=== PATIENT | male | born 1950 | race Asian ===

== ENCOUNTER 2024-08-24 23:58 | Inpatient (IN) | payer BC, MEDICAID ==
[~2024-08-24] VITALS: Ht 165.1 cm; Wt 56.7 kg
[2024-08-25] VITALS (22 sets, daily range): BP systolic 88–122; BP diastolic 45–73; PULSE 85–98; RESP 17–29; TEMP 36.3–36.7; O2SAT 97–100
[2024-08-25 00:33] LABS: BASOPHILS % 0.5 % (0.0-2.0); EOSINOPHILS % 2.4 % (0.0-5.0); HEMATOCRIT. 30.0 % (42.0-52.0); HEMOGLOBIN. 9.8 g/dL (14.0-18.0); LYMPHOCYTES % 33.4 % (20.0-50.0); MEAN PLATELET VOLUME 8.6 fl (7.4-10.4); MONOCYTES % 6.3 % (2.0-8.0); NEUTROPHILS % 57.4 % (40.0-76.0); PLATELET 285 x1000/uL (130-400); RED BLOOD CELL COUNT 3.28 mill/uL (4.7-6.1); RED CELL DISTRIBUTION WIDTH 13.9 % (11.6-14.6)
[2024-08-25 00:39] LABS: INR 1.0
[2024-08-25 00:51] LABS: CREATININE 2.9 mg/dL (0.6-1.3); UREA NITROGEN BLOOD 58 mg/dL (9-23)
[2024-08-25 00:52] LABS: ETHANOL BLOOD < 10 mg/dL (<10)
[2024-08-25 00:53] LABS: TROPONIN I HIGH SENSITIVITY 101 ng/L (3.0-53)
[2024-08-25] MEDS: SODIUM CHLORIDE 0.9% 250 ML IV ONE ×2 (03:11→03:25)
[2024-08-25] MEDS: PIPERACILLIN/TAZO 3.375G/50ML 50 ML IV NR (03:18)
[2024-08-25 04:27] LABS: TROPONIN I HIGH SENSITIVITY 849.0 ng/L (3.0-53)
[2024-08-25] MEDS: VANCOMYCIN 1G PREMIX 200 ML IV NR (04:33)
[2024-08-25] MEDS ORDERED: HEPARIN 5000 UNITS/ML VIAL IV PRN ×4 (04:45→05:12)
[2024-08-25] MEDS ORDERED: NOREPINEPHRINE 8 MG in DEXT 5% WATER 242 ML IV PRN (04:45)
[2024-08-25] MEDS: HEPARIN 5000 UNITS/ML VIAL IV SCH (04:57)
[2024-08-25] MEDS: HEPARIN 25,000 UNITS PREMIX 250 ML IV PRN (05:22)
[2024-08-25] MEDS ORDERED: IPRATROPIUM/ALBUTEROL 0.5-3(2.5)MG/3ML NEB HHN PRN (10:00)
[2024-08-25] MEDS ORDERED: DEXTROSE 50% WATER 50ML SYRINGE IV PRN (10:00)
[2024-08-25] MEDS: BLOOD SUGAR DIAGNOSTIC STRIP TEST SCH (12:44)
[2024-08-25] MEDS: INSULIN LISPRO 100 UNITS/ML SUBCUT SCH (12:46)
[2024-08-25 12:53] LABS: CREATININE 2.6 mg/dL (0.6-1.3); UREA NITROGEN BLOOD 58.0 mg/dL (9-23)
[2024-08-25 16:38] LABS: TROPONIN I HIGH SENSITIVITY 105107 ng/L (3.0-53)
[2024-08-25] MEDS ORDERED: RIVAROXABAN 15 MG TABLET PO SCH (17:00)
[2024-08-25] MEDS ORDERED: RIVAROXABAN 10 MG TABLET PO SCH (18:20)
[2024-08-25] MEDS: ENOXAPARIN 60MG/0.6ML SYR SUBCUT SCH (18:33)
[2024-08-25] MEDS: ASPIRIN 81MG TABLET PO SCH (18:45)
[2024-08-25 19:49] LABS: TRIGLYCERIDE 122.0 mg/dL (0-150)
[2024-08-25 19:50] LABS: LDL CHOLESTEROL 59.0 mg/dL (5-100)
[2024-08-25] MEDS: ATORVASTATIN CALCIUM 40MG TABLET PO SCH (20:58)
[2024-08-25] MEDS ORDERED: IPRATROPIUM/ALBUTEROL 0.5-3(2.5)MG/3ML NEB NEB PRN (23:30)
[2024-08-25] MEDS ORDERED: ACETAMINOPHEN 325MG TABLET PO PRN (23:30)
[2024-08-25] MEDS ORDERED: ONDANSETRON HCL 4MG/2ML INJ IV PRN (23:30)
[2024-08-25] MEDS ORDERED: HYDRALAZINE 20MG/ML VIAL IV PRN (23:30)
[2024-08-25] MEDS ORDERED: MAGNESIUM/ALUMINUM HYDROXIDE/SIMETHICONE 30ML UDC PO PRN (23:30)
[2024-08-26] VITALS (10 sets, daily range): BP systolic 92–123; BP diastolic 43–63; PULSE 80–89; RESP 18–23; TEMP 36.6–37; O2SAT 96–100
[2024-08-26 08:40] LABS: BASOPHILS % 0.6 % (0.0-2.0); EOSINOPHILS % 1.9 % (0.0-5.0); HEMATOCRIT. 28.4 % (42.0-52.0); HEMOGLOBIN. 9.2 g/dL (14.0-18.0); LYMPHOCYTES % 17.4 % (20.0-50.0); MEAN PLATELET VOLUME 8.2 fl (7.4-10.4); MONOCYTES % 6.5 % (2.0-8.0); NEUTROPHILS % 73.6 % (40.0-76.0); PLATELET 216 x1000/uL (130-400); RED BLOOD CELL COUNT 3.12 mill/uL (4.7-6.1); RED CELL DISTRIBUTION WIDTH 14.1 % (11.6-14.6)
[2024-08-26 09:18] LABS: CREATININE 2.4 mg/dL (0.6-1.3)
[2024-08-26 09:19] LABS: UREA NITROGEN BLOOD 47 mg/dL (9-23)
[2024-08-26 09:42] LABS: TROPONIN I HIGH SENSITIVITY 76887 ng/L (3.0-53)
[2024-08-26] MEDS ORDERED: HEPARIN 1000 UNITS/ML 10ML ONE (12:58)
[2024-08-26] MEDS ORDERED: IODIXANOL 320MG/ML 100 ML BOTTLE IV ONE (12:58)
[2024-08-26] MEDS ORDERED: LIDOCAINE HCL 1% 20ML VIAL ONE (12:58)
[2024-08-26] MEDS ORDERED: MIDAZOLAM HCL 2 MG/2 ML VIAL ONE (13:01)
[2024-08-26] MEDS ORDERED: FENTANYL CITRATE/PF 50MCG/ML 2ML VIAL ONE (13:01)
[2024-08-26] MEDS ORDERED: ATROPINE SULFATE 1MG/10ML SYR IV PRN (13:45)
[2024-08-26] MEDS: ENOXAPARIN 60MG/0.6ML SYR SUBCUT SCH (22:08)
[2024-08-26] MEDS: EPOETIN ALFA-EPBX 10,000 UNIT/ML VIAL SUBCUT SCH (22:10)
[2024-08-27] VITALS (8 sets, daily range): BP systolic 107–140; BP diastolic 45–65; PULSE 85–97; RESP 15–30; TEMP 36.7–37.2; O2SAT 97–99
[2024-08-27 05:51] LABS: CLARITY URINE CLEAR (CLEAR); COLOR URINE YELLOW (YELLOW)
[2024-08-27 05:52] LABS: PH URINE 6.0 (4.5-8.0); PROTEIN URINE TRACE (NEGATIVE); SPECIFIC GRAVITY URINE 1.0236.0 (1.005-1.030)
[2024-08-27 05:53] LABS: GLUCOSE URINE 3+ (NEGATIVE)
[2024-08-27 05:54] LABS: KETONES URINE NEGATIVE (NEGATIVE); OCCULT BLOOD URINE TRACE (NEGATIVE)
[2024-08-27 05:55] LABS: LEUKOCYTE ESTERASE URINE NEGATIVE (NEGATIVE)
[2024-08-27 05:56] LABS: NITRITE URINE NEGATIVE (NEGATIVE); UROBILINOGEN URINE 0.2 E.U./dL (0.2-1.0)
[2024-08-27 06:46] LABS: WBC URINE 0-2 /hpf (0-2)
[2024-08-27 06:48] LABS: BACTERIA URINE NONE SEEN; RBC URINE NONE SEEN /hpf (0-2); SQUAMOUS EPITHELIAL CELL URINE NONE SEEN /lpf (RARE/1+)
[2024-08-27 07:17] LABS: BASOPHILS % 0.6 % (0.0-2.0); EOSINOPHILS % 2.5 % (0.0-5.0); HEMATOCRIT. 28.1 % (42.0-52.0); HEMOGLOBIN. 9.3 g/dL (14.0-18.0); LYMPHOCYTES % 17.7 % (20.0-50.0); MEAN PLATELET VOLUME 8.4 fl (7.4-10.4); MONOCYTES % 5.9 % (2.0-8.0); NEUTROPHILS % 73.3 % (40.0-76.0); PLATELET 197 x1000/uL (130-400); RED BLOOD CELL COUNT 3.13 mill/uL (4.7-6.1); RED CELL DISTRIBUTION WIDTH 13.7 % (11.6-14.6)
[2024-08-27 07:41] LABS: CREATININE 2.1 mg/dL (0.6-1.3); PROTEIN TOTAL 6.1 g/dL (6.0-8.3)
[2024-08-27 07:42] LABS: UREA NITROGEN BLOOD 36 mg/dL (9-23)
[2024-08-27 07:43] LABS: ASPARTATE AMINOTRANSFERASE 116 IU/L (<34)
[2024-08-27 07:44] LABS: BILIRUBIN DIRECT 0.2 mg/dL (<=3.0); BILIRUBIN TOTAL 0.7 mg/dL (0.1-1.0); PHOSPHORUS 2.9 mg/dL (2.5-4.9)
[2024-08-27 09:43] LABS: FOLIC ACID (FOLATE) SERUM 19.27 ng/mL (>5.38); VITAMIN B12 SERUM 506 pg/mL (211-911)
[2024-08-27] MEDS: FERROUS SULFATE 325MG TABLET PO SCH (13:11)
[2024-08-28] VITALS (9 sets, daily range): BP systolic 94–123; BP diastolic 53–70; PULSE 82–98; RESP 11–28; TEMP 36.6–37.2; O2SAT 96–99
[2024-08-28 08:26] LABS: BASOPHILS % 0.5 % (0.0-2.0); EOSINOPHILS % 3.4 % (0.0-5.0); HEMATOCRIT. 28.8 % (42.0-52.0); HEMOGLOBIN. 9.6 g/dL (14.0-18.0); LYMPHOCYTES % 17.9 % (20.0-50.0); MEAN PLATELET VOLUME 8.6 fl (7.4-10.4); MONOCYTES % 7.1 % (2.0-8.0); NEUTROPHILS % 71.1 % (40.0-76.0); PLATELET 204 x1000/uL (130-400); RED BLOOD CELL COUNT 3.21 mill/uL (4.7-6.1); RED CELL DISTRIBUTION WIDTH 13.8 % (11.6-14.6)
[2024-08-28 08:47] LABS: UREA NITROGEN BLOOD 34 mg/dL (9-23)
[2024-08-28 08:48] LABS: CREATININE 2.2 mg/dL (0.6-1.3)
[2024-08-28 08:49] LABS: ASPARTATE AMINOTRANSFERASE 66 IU/L (<34)
[2024-08-28 08:50] LABS: BILIRUBIN DIRECT 0.2 mg/dL (<=3.0); BILIRUBIN TOTAL 0.5 mg/dL (0.1-1.0); PHOSPHORUS 2.8 mg/dL (2.5-4.9); PROTEIN TOTAL 6.4 g/dL (6.0-8.3)
[2024-08-29] VITALS (11 sets, daily range): BP systolic 105–135; BP diastolic 54–71; PULSE 84–91; RESP 14–29; TEMP 36.4–37; O2SAT 97–100
[2024-08-29 06:36] LABS: BASOPHILS % 0.5 % (0.0-2.0); EOSINOPHILS % 3.9 % (0.0-5.0); HEMATOCRIT. 29.3 % (42.0-52.0); HEMOGLOBIN. 9.8 g/dL (14.0-18.0); LYMPHOCYTES % 17.2 % (20.0-50.0); MEAN PLATELET VOLUME 8.7 fl (7.4-10.4); MONOCYTES % 7.5 % (2.0-8.0); NEUTROPHILS % 70.9 % (40.0-76.0); PLATELET 209 x1000/uL (130-400); RED BLOOD CELL COUNT 3.26 mill/uL (4.7-6.1); RED CELL DISTRIBUTION WIDTH 13.9 % (11.6-14.6)
[2024-08-29 06:46] LABS: CREATININE 1.9 mg/dL (0.6-1.3); UREA NITROGEN BLOOD 33 mg/dL (9-23)
[2024-08-29 06:48] LABS: PHOSPHORUS 3.0 mg/dL (2.5-4.9)
[2024-08-29] MEDS ORDERED: DIPHENHYDRAMINE 25MG CAPSULE PO PRN (21:00)
[2024-08-29] MEDS: ALLOPURINOL 300 MG TABLET PO SCH (21:13)
[2024-08-29] MEDS: DOCUSATE SODIUM 100MG CAPSULE PO SCH (21:14)
[2024-08-29] MEDS: ASCORBIC ACID 500 MG TABLET PO SCH (21:14)
[2024-08-29] MEDS: CHLORHEXIDINE GLUCONATE 4% EXTERNAL USE TOP SCH (21:14)
[2024-08-29 22:29] LABS: INR 1.0
[2024-08-30] VITALS (54 sets, daily range): BP systolic 96–141; BP diastolic 25–93; PULSE 78–138; RESP 15–39; TEMP 26.1–37.2252; O2SAT 88–100
[2024-08-30] MEDS ORDERED: NICARDIPINE 40MG/200ML PREMIX 200 ML IV PRN (05:00)
[2024-08-30] MEDS ORDERED: NOREPINEPHRINE 8MG/250ML PMX 250 ML IV PRN ×2 (05:00→13:45)
[2024-08-30] MEDS ORDERED: LR with VERAPAMIL, NTG, HEPARIN, SODIUM BICARBONATE (Soln) IV PRN (05:00)
[2024-08-30] MEDS ORDERED: PAPAVERINE HCL 180MG in SODIUM CHLORIDE 0.9% 24ML IV PRN (05:00)
[2024-08-30] MEDS ORDERED: DOPAMINE 400MG/250ML PREMIX 250 ML IV PRN (05:00)
[2024-08-30] MEDS ORDERED: DOBUTAMINE 250 MG/250 ML PREMIX IV PRN (05:00)
[2024-08-30] MEDS ORDERED: AMINOCAPROIC ACID 5,000 MG in SODIUM CHLORIDE 0.9% 250 ML IV PRN (05:00)
[2024-08-30] MEDS ORDERED: EPINEPHRINE 5 MG in DEXT 5% WATER 250 ML IV PRN (05:00)
[2024-08-30] MEDS ORDERED: VANCOMYCIN 1G PREMIX 200 ML IV SCH (05:00)
[2024-08-30] MEDS ORDERED: CEFAZOLIN 2,000 MG in DEXT 5% WATER 100 ML IV SCH (05:00)
[2024-08-30] MEDS: BLOOD SUGAR DIAGNOSTIC STRIP TEST SCH ×2 (05:25→14:00)
[2024-08-30] MEDS ORDERED: POLYMYXIN B SULFATE 500000 UNITS/VIAL ONE (05:56)
[2024-08-30] MEDS ORDERED: THROMBIN (BOVINE) 5000 UNITS/VIAL TOP ONE ×3 (05:57→11:57)
[2024-08-30] MEDS ORDERED: ACETAMINOPHEN 1000MG/100ML 100 ML IV ONE (05:57)
[2024-08-30] MEDS ORDERED: DEXMEDETOMIDINE 400 MCG/100 ML 100 ML IV ONE (06:11)
[2024-08-30] MEDS ORDERED: HEPARIN 1000 UNITS/ML 10ML ONE ×2 (06:11→08:28)
[2024-08-30] MEDS ORDERED: SEVOFLURANE 250 ML LIQUID INH ONE (06:11)
[2024-08-30] MEDS ORDERED: NICARDIPINE 40MG/200ML PREMIX 200 ML IV ONE (06:11)
[2024-08-30] MEDS: CHLORHEXIDINE GLUCONATE 4% EXTERNAL USE TOP SCH (06:11)
[2024-08-30] MEDS ORDERED: DOPAMINE 400MG/250ML PREMIX 250 ML IV ONE (06:11)
[2024-08-30] MEDS ORDERED: PROPOFOL 10MG/ML 100ML 100 ML IV ONE (06:14)
[2024-08-30] MEDS ORDERED: NITROGLYCERIN 50MG PREMIX 250 ML IV ONE (06:19)
[2024-08-30 06:26] LABS: BASOPHILS % 0.7 % (0.0-2.0); EOSINOPHILS % 3.8 % (0.0-5.0); HEMATOCRIT. 39.7 % (42.0-52.0); HEMOGLOBIN. 12.9 g/dL (14.0-18.0); LYMPHOCYTES % 21.1 % (20.0-50.0); MEAN PLATELET VOLUME 8.9 fl (7.4-10.4); MONOCYTES % 6.1 % (2.0-8.0); NEUTROPHILS % 68.3 % (40.0-76.0); PLATELET 224 x1000/uL (130-400); RED BLOOD CELL COUNT 4.45 mill/uL (4.7-6.1); RED CELL DISTRIBUTION WIDTH 15.2 % (11.6-14.6)
[2024-08-30 06:33] LABS: CREATININE 1.8 mg/dL (0.6-1.3); UREA NITROGEN BLOOD 29 mg/dL (9-23)
[2024-08-30 06:35] LABS: PHOSPHORUS 2.7 mg/dL (2.5-4.9)
[2024-08-30] MEDS ORDERED: FENTANYL CITRATE/PF 50MCG/ML 2ML VIAL ONE ×2 (07:26)
[2024-08-30] MEDS ORDERED: ROCURONIUM BROMIDE 10MG/ML VIAL 5ML IV ONE ×2 (07:27→10:35)
[2024-08-30] MEDS ORDERED: ETOMIDATE 2MG/ML 10ML VIAL IV ONE (07:27)
[2024-08-30] MEDS ORDERED: FUROSEMIDE 100MG/10ML VIAL ONE (08:25)
[2024-08-30] MEDS ORDERED: HEPARIN 10,000 UNITS/ML VIAL ONE (09:00)
[2024-08-30] MEDS ORDERED: CEFAZOLIN SODIUM 1000MG/VIAL ONE (09:05)
[2024-08-30] MEDS ORDERED: ESMOLOL HCL 10MG/ML 10ML VIAL IV ONE (09:05)
[2024-08-30] MEDS ORDERED: ONDANSETRON HCL 4MG/2ML INJ ONE (09:06)
[2024-08-30] MEDS ORDERED: SODIUM BICARBONATE 8.4% 50MEQ/50ML SYR IV ONE ×3 (09:09→10:29)
[2024-08-30] MEDS ORDERED: CALCIUM CHLORIDE 1GM/10ML SYR IV ONE ×2 (09:41→10:26)
[2024-08-30] MEDS ORDERED: AMIODARONE 360MG/200ML D5W PREMIX IV SCH (10:00)
[2024-08-30] MEDS ORDERED: VASOPRESSIN 20 UNIT/ML 1ML ONE (10:27)
[2024-08-30] MEDS ORDERED: LIDOCAINE HCL 2% 5ML SYRINGE IV ONE (11:05)
[2024-08-30] MEDS ORDERED: PROTAMINE SULFATE 10MG/ML VIAL 25ML IV ONE (11:27)
[2024-08-30] MEDS ORDERED: CALCIUM CHLORIDE 3,000 MG in DEXT 5% WATER 250 ML IV PRN (12:30)
[2024-08-30] MEDS ORDERED: MAGNESIUM SULFATE 3 GM in DEXT 5% WATER 100 ML IV PRN (12:30)
[2024-08-30] MEDS ORDERED: SODIUM CHLORIDE 0.9% 500 ML IV PRN (12:30)
[2024-08-30] MEDS ORDERED: MAGNESIUM 2 G PREMIX 50 ML IV PRN (12:30)
[2024-08-30] MEDS ORDERED: CALCIUM CHLORIDE 5,000 MG in DEXT 5% WATER 500 ML IV PRN (12:30)
[2024-08-30] MEDS ORDERED: ALBUMIN HUMAN 25GM/100ML (25%) IV PRN (12:30)
[2024-08-30] MEDS ORDERED: MAGNESIUM 1 G PREMIX 100 ML IV PRN (12:30)
[2024-08-30] MEDS ORDERED: DEXTROSE 50% WATER 50ML SYRINGE IV PRN ×2 (12:45)
[2024-08-30] MEDS ORDERED: BLOOD SUGAR DIAGNOSTIC STRIP TEST SCH (12:45)
[2024-08-30 12:52] LABS: BASOPHILS % 0.1 % (0.0-2.0); EOSINOPHILS % 1.8 % (0.0-5.0); HEMATOCRIT. 27.8 % (42.0-52.0); HEMOGLOBIN. 9.1 g/dL (14.0-18.0); LYMPHOCYTES % 17.5 % (20.0-50.0); MEAN PLATELET VOLUME 8.8 fl (7.4-10.4); MONOCYTES % 0.8 % (2.0-8.0); NEUTROPHILS % 79.8 % (40.0-76.0); PLATELET 144 x1000/uL (130-400); RED BLOOD CELL COUNT 3.18 mill/uL (4.7-6.1); RED CELL DISTRIBUTION WIDTH 14.3 % (11.6-14.6)
[2024-08-30 13:00] LABS: INR 1.1
[2024-08-30 13:03] LABS: CREATININE 2.0 mg/dL (0.6-1.3); UREA NITROGEN BLOOD 31 mg/dL (9-23)
[2024-08-30 13:05] LABS: ASPARTATE AMINOTRANSFERASE 53 IU/L (<34); BILIRUBIN TOTAL 0.4 mg/dL (0.1-1.0); PHOSPHORUS 4.9 mg/dL (2.5-4.9)
[2024-08-30 13:11] LABS: PROTEIN TOTAL 4.2 g/dL (6.0-8.3)
[2024-08-30] MEDS: NOREPINEPHRINE 8MG/250ML PMX 250 ML IV PRN (13:45)
[2024-08-30] MEDS: INSULIN REGULAR 100U/100ML PMX 100 ML IV NR (13:45)
[2024-08-30] MEDS: EPINEPHRINE 5 MG in DEXT 5% WATER 245 ML IV PRN (13:47)
[2024-08-30] MEDS: DOPAMINE 400MG/250ML PREMIX 250 ML IV PRN (13:47)
[2024-08-30] MEDS: VASOPRESSIN 20 UNIT in SODIUM CHLORIDE 0.9% 99 ML IV PRN (13:48)
[2024-08-30] MEDS: ALBUMIN HUMAN 12.5G/250ML (5%) IV PRN (13:48)
[2024-08-30] MEDS: DEXT 5%/0.45% NACL 1000ML 1,000 ML IV SCH (13:49)
[2024-08-30 14:11] LABS: BG BASE EXCESS -5.5 mmol/L (-2.0-3.0); BG CARBOXYHEMOGLOBIN 1.0 % (0.5-1.5); BG DEOXYHEMOGLOBIN 11.7 % (0.0-5.0); BG FRACTION INSPIRED OXYGEN 70; BG HCO3 ACT 19.4 mmol/L (21.0-28.0); BG METHEMOGLOBIN 0.3 % (0.5-1.5); BG OXYGEN SATURATION 88.1 % (94.0-98.0); BG OXYHEMOGLOBIN 87.0 % (94.0-98.0); BG PCO2 36.0 mmHg (35.0-48.0); BG PEEP (cmH2O) 10.0 cmH2O; BG PH 7.350 (7.350-7.450); BG PO2 58.2 mmHg (83.0-108.0); BG SAMPLE SITE ALINE; BG TIDAL VOLUME(mL) 450.0 mL; BG TOTAL HEMOGLOBIN 10.7 g/dL (13.5-17.5); BG TOTAL RESPIRATORY RATE 27 b/min; BG VENT MODE VENT - SIMV; BG VENT RATE 14.0 set
[2024-08-30 14:35] LABS: CREATININE 2.1 mg/dL (0.6-1.3); UREA NITROGEN BLOOD 32.0 mg/dL (9-23)
[2024-08-30] MEDS: DEXMEDETOMIDINE 400 MCG/100 ML 100 ML IV PRN (14:43)
[2024-08-30] MEDS: SODIUM BICARBONATE 8.4% 50MEQ/50ML SYR IV SCH (14:47)
[2024-08-30] MEDS: ONDANSETRON HCL 4MG/2ML INJ IV PRN (14:57)
[2024-08-30] MEDS ORDERED: ALBUMIN HUMAN 25GM/500ML (5%) IV NR (15:00)
[2024-08-30] MEDS: INSULIN REGULAR 100U/100ML PMX 100 ML IV SCH (15:04)
[2024-08-30] MEDS: KCL 10MEQ/50ML PREMIX 150 ML IV PRN (15:06)
[2024-08-30] MEDS ORDERED: KCL 10MEQ/50ML PREMIX 200 ML IV PRN (15:15)
[2024-08-30 15:20] LABS: PHOSPHORUS 6.4 mg/dL (2.5-4.9)
[2024-08-30 15:35] LABS: BG BASE EXCESS 1.0 mmol/L (-2.0-3.0); BG CARBOXYHEMOGLOBIN 0.3 % (0.5-1.5); BG DEOXYHEMOGLOBIN 1.1 % (0.0-5.0); BG FRACTION INSPIRED OXYGEN 100; BG HCO3 ACT 24.9 mmol/L (21.0-28.0); BG METHEMOGLOBIN 0.3 % (0.5-1.5); BG OXYGEN SATURATION 98.9 % (94.0-98.0); BG OXYHEMOGLOBIN 98.3 % (94.0-98.0); BG PCO2 36.5 mmHg (35.0-48.0); BG PEEP (cmH2O) 10.0 cmH2O; BG PH 7.451 (7.350-7.450); BG PO2 216.4 mmHg (83.0-108.0); BG SAMPLE SITE ALINE; BG TIDAL VOLUME(mL) 450.0 mL; BG TOTAL HEMOGLOBIN 9.3 g/dL (13.5-17.5); BG VENT MODE VENT - SIMV; BG VENT RATE 14.0 set
[2024-08-30] MEDS: IPRATROPIUM/ALBUTEROL 0.5-3(2.5)MG/3ML NEB HHN SCH (15:57)
[2024-08-30 17:16] LABS: BG BASE EXCESS 4.3 mmol/L (-2.0-3.0); BG CARBOXYHEMOGLOBIN 0.3 % (0.5-1.5); BG DEOXYHEMOGLOBIN 7.8 % (0.0-5.0); BG FRACTION INSPIRED OXYGEN 50; BG HCO3 ACT 27.9 mmol/L (21.0-28.0); BG METHEMOGLOBIN 0.3 % (0.5-1.5); BG OXYGEN SATURATION 92.2 % (94.0-98.0); BG OXYHEMOGLOBIN 91.6 % (94.0-98.0); BG PCO2 37.5 mmHg (35.0-48.0); BG PH 7.489 (7.350-7.450); BG PO2 64.1 mmHg (83.0-108.0); BG SAMPLE SITE ALINE; BG TOTAL HEMOGLOBIN 10.1 g/dL (13.5-17.5); BG VENT MODE VENT - CPAP
[2024-08-30] MEDS: METOCLOPRAMIDE HCL 10MG/2ML VIAL IV SCH (18:05)
[2024-08-30] MEDS: BUMETANIDE 2.5MG/10ML VIAL IV SCH (18:05)
[2024-08-30 19:11] LABS: BG BASE EXCESS -0.1 mmol/L (-2.0-3.0); BG CARBOXYHEMOGLOBIN 0.3 % (0.5-1.5); BG DEOXYHEMOGLOBIN 5.7 % (0.0-5.0); BG FLOW(L/min) 10.00 L/min; BG FRACTION INSPIRED OXYGEN 60; BG HCO3 ACT 23.9 mmol/L (21.0-28.0); BG METHEMOGLOBIN 0.3 % (0.5-1.5); BG OXYGEN SATURATION 94.3 % (94.0-98.0); BG OXYHEMOGLOBIN 93.7 % (94.0-98.0); BG PCO2 36.5 mmHg (35.0-48.0); BG PH 7.434 (7.350-7.450); BG PO2 75.2 mmHg (83.0-108.0); BG SAMPLE SITE ALINE; BG TOTAL HEMOGLOBIN 10.3 g/dL (13.5-17.5); BG VENT MODE COOL AEROSOL
[2024-08-30 20:31] LABS: HEMATOCRIT. 26.6 % (42.0-52.0); HEMOGLOBIN. 8.8 g/dL (14.0-18.0); MEAN PLATELET VOLUME 8.9 fl (7.4-10.4); PLATELET 171 x1000/uL (130-400); RED BLOOD CELL COUNT 3.05 mill/uL (4.7-6.1); RED CELL DISTRIBUTION WIDTH 14.4 % (11.6-14.6)
[2024-08-30 20:44] LABS: CREATININE 2.5 mg/dL (0.6-1.3)
[2024-08-30 20:58] LABS: BAND% 9.0 % (1.0-6.0); LYMPHOCYTES % MANUAL 15.0 % (20.0-50.0); MONOCYTES % MANUAL 11.0 % (2.0-8.0); NEUTROPHILS % MANUAL 65.0 % (45.0-75.0); NUCLEATED RED BLOOD CELLS 4 /100 WBC; PLATELET ESTIMATE NORMAL
[2024-08-30] MEDS: BACITRACIN 14GM TUBE TOP SCH (21:00)
[2024-08-30] MEDS ORDERED: CEFAZOLIN 1000MG PREMIX 50 ML IV SCH (21:00)
[2024-08-30 21:08] LABS: UREA NITROGEN BLOOD 34 mg/dL (9-23)
[2024-08-30] MEDS: KCL 10MEQ/50ML PREMIX 100 ML IV PRN (21:08)
[2024-08-30 21:09] LABS: PHOSPHORUS 1.9 mg/dL (2.5-4.9)
[2024-08-30] MEDS: ALBUMIN HUMAN 12.5G/250ML (5%) IV SCH (21:32)
[2024-08-30] MEDS: DEXT 5%/0.45% NACL KCL 20MEQ/L 1,000 ML IV ONE (21:41)
[2024-08-30] MEDS: HEPARIN 5000 UNITS/ML VIAL SUBCUT SCH (21:41)
[2024-08-30] MEDS: OXYCODONE HCL/ACETAMINOPHEN 5/325MG TABLET PO PRN (22:15)
[2024-08-31] VITALS (106 sets, daily range): BP systolic 101–175; BP diastolic 24–79; PULSE 12–130; RESP 12–32; TEMP 36.44736–37.55856; O2SAT 94–100
[2024-08-31] MEDS: FUROSEMIDE 40MG/4ML VIAL IVP SCH (01:21)
[2024-08-31 01:46] LABS: CREATININE 2.8 mg/dL (0.6-1.3); UREA NITROGEN BLOOD 34 mg/dL (9-23)
[2024-08-31 01:48] LABS: PHOSPHORUS 3.6 mg/dL (2.5-4.9)
[2024-08-31] MEDS: EPINEPHRINE 5 MG in SODIUM CHLORIDE 0.9% 245 ML IV PRN (04:57)
[2024-08-31] MEDS: DOPAMINE 400MG/250ML PREMIX 250 ML IV PRN (04:58)
[2024-08-31 06:00] LABS: BASOPHILS % 0.2 % (0.0-2.0); EOSINOPHILS % 0.2 % (0.0-5.0); HEMATOCRIT. 34.9 % (42.0-52.0); HEMOGLOBIN. 11.8 g/dL (14.0-18.0); LYMPHOCYTES % 11.8 % (20.0-50.0); MEAN PLATELET VOLUME 9.0 fl (7.4-10.4); MONOCYTES % 8.6 % (2.0-8.0); NEUTROPHILS % 79.2 % (40.0-76.0); PLATELET 117 x1000/uL (130-400); RED BLOOD CELL COUNT 4.05 mill/uL (4.7-6.1); RED CELL DISTRIBUTION WIDTH 14.4 % (11.6-14.6)
[2024-08-31] MEDS: FUROSEMIDE 40MG/4ML VIAL IVP NR (06:28)
[2024-08-31] MEDS ORDERED: NALOXONE HCL 0.4MG/ML VIAL IV PRN (06:30)
[2024-08-31 06:45] LABS: CREATININE 3.2 mg/dL (0.6-1.3); UREA NITROGEN BLOOD 37 mg/dL (9-23)
[2024-08-31 06:48] LABS: PHOSPHORUS 4.5 mg/dL (2.5-4.9)
[2024-08-31] MEDS: NITROGLYCERIN 50MG PREMIX 250 ML IV PRN (07:13)
[2024-08-31] MEDS: FAMOTIDINE 20MG/2ML VIAL IV SCH (09:11)
[2024-08-31] MEDS: MAGNESIUM HYDROXIDE 400MG/5ML 30ML UDC PO SCH (09:11)
[2024-08-31] MEDS: DEXT 5%/0.45% NACL 1000ML 1,000 ML IV SCH (09:12)
[2024-08-31] MEDS: ASPIRIN 81MG TABLET PO SCH (10:30)
[2024-08-31 10:37] LABS: BG BASE EXCESS 0.5 mmol/L (-2.0-3.0); BG CARBOXYHEMOGLOBIN 0.5 % (0.5-1.5); BG DEOXYHEMOGLOBIN 2.6 % (0.0-5.0); BG FLOW(L/min) 5.00 L/min; BG FRACTION INSPIRED OXYGEN 40; BG HCO3 ACT 24.8 mmol/L (21.0-28.0); BG METHEMOGLOBIN 0.1 % (0.5-1.5); BG OXYGEN SATURATION 97.4 % (94.0-98.0); BG OXYHEMOGLOBIN 96.8 % (94.0-98.0); BG PCO2 39.0 mmHg (35.0-48.0); BG PH 7.422 (7.350-7.450); BG PO2 103.1 mmHg (83.0-108.0); BG SAMPLE SITE LEFT RADIAL; BG TOTAL HEMOGLOBIN 12.2 g/dL (13.5-17.5); BG VENT MODE NASAL CANNULA
[2024-08-31] MEDS: TAMSULOSIN HCL 0.4MG SR CAPSULE PO NR (11:01)
[2024-08-31] MEDS: CLOPIDOGREL 75MG TABLET PO SCH (11:01)
[2024-08-31] MEDS: ALBUMIN HUMAN 12.5G/250ML (5%) IV NR (11:02)
[2024-08-31 13:58] LABS: PLATELET 96 x1000/uL (130-400); RED BLOOD CELL COUNT 3.98 mill/uL (4.7-6.1); RED CELL DISTRIBUTION WIDTH 14.6 % (11.6-14.6)
[2024-08-31 14:17] LABS: CREATININE 3.4 mg/dL (0.6-1.3); UREA NITROGEN BLOOD 37 mg/dL (9-23)
[2024-08-31 14:19] LABS: PHOSPHORUS 6.4 mg/dL (2.5-4.9)
[2024-08-31] MEDS: TAMSULOSIN HCL 0.4MG SR CAPSULE PO SCH (16:09)
[2024-08-31] MEDS: ALBUMIN HUMAN 12.5G/250ML (5%) IV SCH (17:19)
[2024-08-31] MEDS ORDERED: DEXTROSE 50% WATER 50ML SYRINGE IV PRN (20:45)
[2024-08-31] MEDS: BLOOD SUGAR DIAGNOSTIC STRIP TEST SCH (21:00)
[2024-08-31] MEDS: BUMETANIDE 2.5MG/10ML VIAL IV SCH (22:06)
[2024-08-31] MEDS: ALBUMIN HUMAN 25GM/100ML (25%) IV SCH (22:06)
[2024-08-31] MEDS: DEXT 5%/0.45% NACL 1000ML 1,000 ML IV ONE (22:08)
[2024-08-31] MEDS: FUROSEMIDE 100 MG in SODIUM CHLORIDE 0.9% 90 ML IV SCH (22:51)
[2024-08-31] MEDS: INSULIN LISPRO 100 UNITS/ML SUBCUT SCH (23:05)
[2024-09-01] VITALS (102 sets, daily range): BP systolic 53–140; BP diastolic 29–90; PULSE 80–118; RESP 7–38; TEMP 36.8–37.3; O2SAT 86–100
[2024-09-01 05:37] LABS: BASOPHILS % 0.2 % (0.0-2.0); EOSINOPHILS % 0.3 % (0.0-5.0); HEMATOCRIT. 27.8 % (42.0-52.0); HEMOGLOBIN. 9.4 g/dL (14.0-18.0); LYMPHOCYTES % 7.9 % (20.0-50.0); MEAN PLATELET VOLUME 9.4 fl (7.4-10.4); MONOCYTES % 4.8 % (2.0-8.0); NEUTROPHILS % 86.8 % (40.0-76.0); PLATELET 69 x1000/uL (130-400); RED BLOOD CELL COUNT 3.17 mill/uL (4.7-6.1); RED CELL DISTRIBUTION WIDTH 14.5 % (11.6-14.6)
[2024-09-01 06:13] LABS: CREATININE 4.3 mg/dL (0.6-1.3)
[2024-09-01 06:16] LABS: PHOSPHORUS 5.5 mg/dL (2.5-4.9); UREA NITROGEN BLOOD 47 mg/dL (9-23)
[2024-09-01] MEDS: TAMSULOSIN HCL 0.4MG SR CAPSULE PO SCH (08:27)
[2024-09-01 09:17] LABS: HEMATOCRIT. 28.9 % (42.0-52.0); HEMOGLOBIN. 9.5 g/dL (14.0-18.0); MEAN PLATELET VOLUME 9.2 fl (7.4-10.4); PLATELET 71 x1000/uL (130-400); RED BLOOD CELL COUNT 3.30 mill/uL (4.7-6.1); RED CELL DISTRIBUTION WIDTH 14.7 % (11.6-14.6)
[2024-09-01 09:33] LABS: CREATININE 4.4 mg/dL (0.6-1.3); UREA NITROGEN BLOOD 51 mg/dL (9-23)
[2024-09-01 09:35] LABS: PHOSPHORUS 5.7 mg/dL (2.5-4.9)
[2024-09-01 10:17] LABS: BAND% 23.0 % (1.0-6.0); LYMPHOCYTES % MANUAL 11.0 % (20.0-50.0); MONOCYTES % MANUAL 3.0 % (2.0-8.0); NEUTROPHILS % MANUAL 63.0 % (45.0-75.0); NUCLEATED RED BLOOD CELLS 2 /100 WBC
[2024-09-01 10:19] LABS: PLATELET ESTIMATE DECREASED
[2024-09-01] MEDS ORDERED: CALCIUM GLUCONATE 100MG/ML 10ML VIAL IV ONE (13:45)
[2024-09-01] MEDS ORDERED: TAMSULOSIN HCL 0.4MG SR CAPSULE PO SCH (15:00)
[2024-09-01] MEDS: CALCIUM GLUCONATE IV NR (15:34)
[2024-09-01] MEDS: SODIUM CHLORIDE 0.9% IV NR (15:34)
[2024-09-01] MEDS: SODIUM ZIRCONIUM CYCLOSILICATE 10GM/PACKET PO SCH (15:43)
[2024-09-01] MEDS: MINOXIDIL 10MG TABLET PO SCH (18:28)
[2024-09-01] MEDS: FUROSEMIDE 100MG/10ML VIAL IVP SCH (20:30)
[2024-09-01] MEDS: MIDODRINE HCL 5MG TABLET PO SCH (20:35)
[2024-09-02] VITALS (99 sets, daily range): BP systolic 86–137; BP diastolic 50–104; PULSE 106–123; RESP 13–36; TEMP 36.50292–37.2; O2SAT 85–100
[2024-09-02] MEDS: MIDODRINE HCL 5MG TABLET PO SCH (00:04)
[2024-09-02 05:11] LABS: BASOPHILS % 0.2 % (0.0-2.0); EOSINOPHILS % 1.1 % (0.0-5.0); HEMATOCRIT. 28.5 % (42.0-52.0); HEMOGLOBIN. 9.6 g/dL (14.0-18.0); LYMPHOCYTES % 7.3 % (20.0-50.0); MEAN PLATELET VOLUME 9.8 fl (7.4-10.4); MONOCYTES % 4.9 % (2.0-8.0); NEUTROPHILS % 86.5 % (40.0-76.0); PLATELET 76 x1000/uL (130-400); RED BLOOD CELL COUNT 3.22 mill/uL (4.7-6.1); RED CELL DISTRIBUTION WIDTH 14.5 % (11.6-14.6)
[2024-09-02 05:28] LABS: UREA NITROGEN BLOOD 61 mg/dL (9-23)
[2024-09-02 05:29] LABS: ASPARTATE AMINOTRANSFERASE 503 IU/L (<34)
[2024-09-02 05:30] LABS: BILIRUBIN DIRECT 0.6 mg/dL (<=3.0); BILIRUBIN TOTAL 1.2 mg/dL (0.1-1.0); PHOSPHORUS 6.2 mg/dL (2.5-4.9); PROTEIN TOTAL 5.7 g/dL (6.0-8.3)
[2024-09-02 05:35] LABS: CREATININE 5.1 mg/dL (0.6-1.3)
[2024-09-02 09:24] LABS: HEMATOCRIT. 30.1 % (42.0-52.0); HEMOGLOBIN. 10.2 g/dL (14.0-18.0); MEAN PLATELET VOLUME 9.6 fl (7.4-10.4); PLATELET 72 x1000/uL (130-400); RED BLOOD CELL COUNT 3.42 mill/uL (4.7-6.1); RED CELL DISTRIBUTION WIDTH 14.4 % (11.6-14.6)
[2024-09-02] MEDS ORDERED: POTASSIUM CHLORIDE 10MEQ IN WATER 50ML PREMIX IV ONE (09:39)
[2024-09-02 09:44] LABS: UREA NITROGEN BLOOD 65 mg/dL (9-23)
[2024-09-02 09:46] LABS: PHOSPHORUS 6.3 mg/dL (2.5-4.9)
[2024-09-02 09:56] LABS: BAND% 20.0 % (1.0-6.0); EOSINOPHILS % MANUAL 1.0 % (0.0-5.0); LYMPHOCYTES % MANUAL 5.0 % (20.0-50.0); MONOCYTES % MANUAL 1.0 % (2.0-8.0); NEUTROPHILS % MANUAL 73.0 % (45.0-75.0); NUCLEATED RED BLOOD CELLS 3 /100 WBC
[2024-09-02 09:57] LABS: PLATELET ESTIMATE DECREASED
[2024-09-02 10:05] LABS: CREATININE 5.6 mg/dL (0.6-1.3)
[2024-09-02] MEDS: LIDOCAINE HCL 1% 10 MG/ML 10ML VIAL ONE (10:17)
[2024-09-02 11:53] LABS: HEPATITIS A AB IGM NEGATIVE (Negative); HEPATITIS B CORE AB IGM NEGATIVE (Negative)
[2024-09-02 11:54] LABS: HEPATITIS C AB NON REACTIVE (Neg) (Negative)
[2024-09-03] VITALS (115 sets, daily range): BP systolic 68–158; BP diastolic 26–111; PULSE 104–124; RESP 14–36; TEMP 36.44736–37; O2SAT 81–100
[2024-09-03 06:32] LABS: BASOPHILS % 0.3 % (0.0-2.0); EOSINOPHILS % 2.3 % (0.0-5.0); HEMATOCRIT. 29.3 % (42.0-52.0); HEMOGLOBIN. 9.6 g/dL (14.0-18.0); LYMPHOCYTES % 8.8 % (20.0-50.0); MEAN PLATELET VOLUME 9.8 fl (7.4-10.4); MONOCYTES % 8.2 % (2.0-8.0); NEUTROPHILS % 80.4 % (40.0-76.0); PLATELET 72 x1000/uL (130-400); RED BLOOD CELL COUNT 3.30 mill/uL (4.7-6.1); RED CELL DISTRIBUTION WIDTH 14.6 % (11.6-14.6)
[2024-09-03 06:55] LABS: UREA NITROGEN BLOOD 55 mg/dL (9-23)
[2024-09-03 06:56] LABS: CREATININE 4.8 mg/dL (0.6-1.3)
[2024-09-03 06:58] LABS: ASPARTATE AMINOTRANSFERASE 465 IU/L (<34); BILIRUBIN DIRECT 0.6 mg/dL (<=3.0); PHOSPHORUS 5.1 mg/dL (2.5-4.9)
[2024-09-03 06:59] LABS: BILIRUBIN TOTAL 1.3 mg/dL (0.1-1.0); PROTEIN TOTAL 5.5 g/dL (6.0-8.3)
[2024-09-03] MEDS: LIDOCAINE HCL 1% 10 MG/ML 10ML VIAL ONE (15:34)
[2024-09-03] MEDS: MIDODRINE HCL 5MG TABLET PO SCH (16:48)
[2024-09-04] VITALS (92 sets, daily range): BP systolic 61–144; BP diastolic 35–112; PULSE 102–121; RESP 17–36; TEMP 36.6–36.8; O2SAT 64–98
[2024-09-04 04:53] LABS: BASOPHILS % 0.2 % (0.0-2.0); EOSINOPHILS % 2.7 % (0.0-5.0); HEMATOCRIT. 30.0 % (42.0-52.0); HEMOGLOBIN. 9.9 g/dL (14.0-18.0); LYMPHOCYTES % 7.6 % (20.0-50.0); MEAN PLATELET VOLUME 9.7 fl (7.4-10.4); MONOCYTES % 9.0 % (2.0-8.0); NEUTROPHILS % 80.5 % (40.0-76.0); PLATELET 89 x1000/uL (130-400); RED BLOOD CELL COUNT 3.38 mill/uL (4.7-6.1); RED CELL DISTRIBUTION WIDTH 14.7 % (11.6-14.6)
[2024-09-04 05:10] LABS: CREATININE 3.9 mg/dL (0.6-1.3); UREA NITROGEN BLOOD 43 mg/dL (9-23)
[2024-09-04 05:12] LABS: ASPARTATE AMINOTRANSFERASE 558 IU/L (<34)
[2024-09-04 05:13] LABS: BILIRUBIN DIRECT 0.7 mg/dL (<=3.0); BILIRUBIN TOTAL 1.6 mg/dL (0.1-1.0); PHOSPHORUS 3.8 mg/dL (2.5-4.9); PROTEIN TOTAL 5.7 g/dL (6.0-8.3)
[2024-09-04] MEDS: FERROUS SULFATE 325MG TABLET PO SCH (18:17)
[2024-09-05] VITALS (15 sets, daily range): BP systolic 110–150; BP diastolic 56–87; PULSE 104–120; RESP 19–65; TEMP 36.3–36.8; O2SAT 96–100
[2024-09-05 07:28] LABS: BASOPHILS % 0.3 % (0.0-2.0); EOSINOPHILS % 4.4 % (0.0-5.0); HEMATOCRIT. 29.0 % (42.0-52.0); HEMOGLOBIN. 9.5 g/dL (14.0-18.0); LYMPHOCYTES % 8.4 % (20.0-50.0); MEAN PLATELET VOLUME 9.8 fl (7.4-10.4); MONOCYTES % 8.0 % (2.0-8.0); NEUTROPHILS % 78.9 % (40.0-76.0); PLATELET 122 x1000/uL (130-400); RED BLOOD CELL COUNT 3.24 mill/uL (4.7-6.1); RED CELL DISTRIBUTION WIDTH 14.4 % (11.6-14.6)
[2024-09-05 07:43] LABS: CREATININE 4.6 mg/dL (0.6-1.3)
[2024-09-05 07:44] LABS: UREA NITROGEN BLOOD 65 mg/dL (9-23)
[2024-09-05 07:46] LABS: PHOSPHORUS 4.9 mg/dL (2.5-4.9)
[2024-09-05] MEDS: GUAIFENESIN 200MG/10ML SUGAR FREE UDC PO PRN (13:20)
[2024-09-05] MEDS: MORPHINE SULFATE 2 MG/ML INJ (NOT FOR IM USE) IV SCH (14:30)
[2024-09-05] MEDS ORDERED: NALOXONE HCL 0.4MG/ML VIAL IV PRN (14:45)
[2024-09-05] MEDS ORDERED: DULA1.5P SUBCUT (15:28)
[2024-09-05] MEDS ORDERED: METO-396 PO (15:28)
[2024-09-05] MEDS ORDERED: PANT40TA51 PO (15:28)
[2024-09-05] MEDS ORDERED: INSU100I28 SUBCUT (15:28)
[2024-09-05] MEDS ORDERED: ROSU40TA PO (15:28)
[2024-09-05] MEDS ORDERED: INSU100I13 SUBCUT (15:28)
[2024-09-05] MEDS ORDERED: FURO40TA5 PO (15:28)
[2024-09-05] MEDS ORDERED: EMPA10TA PO (15:28)
[2024-09-05] MEDS ORDERED: SPIR25TA6 PO (15:28)
[2024-09-05] MEDS: NITROGLYCERIN OINT 1GM/INCH UDPKT TD SCH (18:13)
[2024-09-05] MEDS: MIDODRINE HCL 5MG TABLET PO SCH (18:17)
[2024-09-05] MEDS: ACETAMINOPHEN 325MG TABLET PO PRN (18:17)
[2024-09-06] VITALS (7 sets, daily range): BP systolic 98–135; BP diastolic 56–67; PULSE 103–113; RESP 18–29; TEMP 36.5–36.8; O2SAT 96–100
[2024-09-06] MEDS: ACETAMINOPHEN 325MG TABLET PO PRN (04:42)
[2024-09-06 08:58] LABS: BASOPHILS % 0.3 % (0.0-2.0); EOSINOPHILS % 3.1 % (0.0-5.0); HEMATOCRIT. 29.9 % (42.0-52.0); HEMOGLOBIN. 9.6 g/dL (14.0-18.0); LYMPHOCYTES % 8.3 % (20.0-50.0); MEAN PLATELET VOLUME 9.6 fl (7.4-10.4); MONOCYTES % 8.1 % (2.0-8.0); NEUTROPHILS % 80.2 % (40.0-76.0); PLATELET 184 x1000/uL (130-400); RED BLOOD CELL COUNT 3.31 mill/uL (4.7-6.1); RED CELL DISTRIBUTION WIDTH 14.8 % (11.6-14.6)
[2024-09-06 09:43] LABS: CREATININE 4.0 mg/dL (0.6-1.3); UREA NITROGEN BLOOD 60 mg/dL (9-23)
[2024-09-06 09:45] LABS: PHOSPHORUS 4.0 mg/dL (2.5-4.9)
[2024-09-06 09:48] LABS: TROPONIN I HIGH SENSITIVITY 2175 ng/L (3.0-53)
[2024-09-06] MEDS: METOPROLOL SUCCINATE 50MG ER TABLET PO SCH (13:04)
[2024-09-06] MEDS: NITROGLYCERIN 0.4MG TABLET SL SL PRN (14:09)
[2024-09-06] MEDS: MORPHINE SULFATE 2 MG/ML INJ (NOT FOR IM USE) IV PRN (14:24)
[2024-09-06] MEDS: HYDROCODONE/ACETAMINOPHEN 5/325MG TABLET PO PRN (17:10)
[2024-09-06] MEDS: EPOETIN ALFA-EPBX 4,000 UNIT/ML VIAL SUBCUT SCH (21:56)
[2024-09-07] VITALS: BP 110/62; PULSE 103; RESP 23; TEMP 36.7; O2SAT 96
[2024-09-07] MEDS ORDERED: MAGNESIUM HYDROXIDE 400MG/5ML 30ML UDC PO SCH
[2024-09-07 04:08] VITALS: BP 93/72; PULSE 106; RESP 24; TEMP 36.4; O2SAT 94
[2024-09-07 08:00] VITALS: BP 112/65; PULSE 102; RESP 22; TEMP 37; O2SAT 97
[2024-09-07 09:01] LABS: UREA NITROGEN BLOOD 69 mg/dL (9-23)
[2024-09-07 09:03] LABS: CREATININE 3.9 mg/dL (0.6-1.3)
[2024-09-07 09:04] LABS: ASPARTATE AMINOTRANSFERASE 197 IU/L (<34)
[2024-09-07 09:05] LABS: BILIRUBIN DIRECT 0.5 mg/dL (<=3.0); BILIRUBIN TOTAL 1.1 mg/dL (0.1-1.0); PHOSPHORUS 4.0 mg/dL (2.5-4.9); PROTEIN TOTAL 5.5 g/dL (6.0-8.3)
[2024-09-07 09:07] LABS: BASOPHILS % 0.4 % (0.0-2.0); EOSINOPHILS % 3.8 % (0.0-5.0); HEMATOCRIT. 28.1 % (42.0-52.0); HEMOGLOBIN. 9.1 g/dL (14.0-18.0); LYMPHOCYTES % 10.0 % (20.0-50.0); MEAN PLATELET VOLUME 9.3 fl (7.4-10.4); MONOCYTES % 9.4 % (2.0-8.0); NEUTROPHILS % 76.4 % (40.0-76.0); PLATELET 237 x1000/uL (130-400); RED BLOOD CELL COUNT 3.14 mill/uL (4.7-6.1); RED CELL DISTRIBUTION WIDTH 14.8 % (11.6-14.6)
[2024-09-07] MEDS: METOPROLOL SUCCINATE 25MG ER TABLET PO SCH (09:24)
[2024-09-07 12:00] VITALS: BP 110/52; PULSE 102; RESP 20; TEMP 36.9; O2SAT 96
[2024-09-07 16:00] VITALS: BP 112/60; PULSE 98; RESP 28; TEMP 36.9; O2SAT 98
[2024-09-08] VITALS (7 sets, daily range): BP systolic 115–131; BP diastolic 54–64; PULSE 95–109; RESP 20–25; TEMP 36.6–37.1; O2SAT 95–99
[2024-09-08 10:04] LABS: BASOPHILS % 0.5 % (0.0-2.0); EOSINOPHILS % 3.6 % (0.0-5.0); HEMATOCRIT. 27.4 % (42.0-52.0); HEMOGLOBIN. 8.9 g/dL (14.0-18.0); LYMPHOCYTES % 8.8 % (20.0-50.0); MEAN PLATELET VOLUME 9.3 fl (7.4-10.4); MONOCYTES % 7.5 % (2.0-8.0); NEUTROPHILS % 79.6 % (40.0-76.0); PLATELET 306 x1000/uL (130-400); RED BLOOD CELL COUNT 3.06 mill/uL (4.7-6.1); RED CELL DISTRIBUTION WIDTH 14.4 % (11.6-14.6)
[2024-09-08 10:35] LABS: CREATININE 3.4 mg/dL (0.6-1.3)
[2024-09-08 10:36] LABS: UREA NITROGEN BLOOD 68 mg/dL (9-23)
[2024-09-08 10:37] LABS: ASPARTATE AMINOTRANSFERASE 129 IU/L (<34)
[2024-09-08 10:38] LABS: BILIRUBIN DIRECT 0.4 mg/dL (<=3.0); BILIRUBIN TOTAL 1.1 mg/dL (0.1-1.0); PHOSPHORUS 4.0 mg/dL (2.5-4.9); PROTEIN TOTAL 5.4 g/dL (6.0-8.3)
[2024-09-08] MEDS: CARVEDILOL 12.5MG TABLET PO SCH (18:05)
[2024-09-08] MEDS: SENNOSIDES 8.6MG TABLET PO SCH (20:28)
[2024-09-08] MEDS: LACTULOSE 20G/30ML UDC PO SCH (20:28)
[2024-09-08] MEDS ORDERED: METOPROLOL SUCCINATE 25MG ER TABLET PO SCH (21:00)
[2024-09-09] VITALS (7 sets, daily range): BP systolic 100–142; BP diastolic 52–67; PULSE 95–103; RESP 20–26; TEMP 36.6–36.7; O2SAT 95–98
[2024-09-09] MEDS: IPRATROPIUM/ALBUTEROL 0.5-3(2.5)MG/3ML NEB HHN PRN (00:38)
[2024-09-09] MEDS: HEPARIN 1000 UNITS/ML 10ML ONE (08:52)
[2024-09-09 11:14] LABS: CREATININE 3.3 mg/dL (0.6-1.3); UREA NITROGEN BLOOD 67 mg/dL (9-23)
[2024-09-09 11:16] LABS: PHOSPHORUS 4.2 mg/dL (2.5-4.9)
[2024-09-09 11:36] LABS: BASOPHILS % 0.5 % (0.0-2.0); EOSINOPHILS % 3.2 % (0.0-5.0); HEMATOCRIT. 28.2 % (42.0-52.0); HEMOGLOBIN. 9.0 g/dL (14.0-18.0); LYMPHOCYTES % 9.6 % (20.0-50.0); MEAN PLATELET VOLUME 8.8 fl (7.4-10.4); MONOCYTES % 6.9 % (2.0-8.0); NEUTROPHILS % 79.8 % (40.0-76.0); PLATELET 357 x1000/uL (130-400); RED BLOOD CELL COUNT 3.16 mill/uL (4.7-6.1); RED CELL DISTRIBUTION WIDTH 14.9 % (11.6-14.6)
[2024-09-09] MEDS: FUROSEMIDE 40MG/4ML VIAL IVP SCH (16:40)
[2024-09-09] MEDS: CARVEDILOL 3.125 MG TABLET PO SCH (17:34)
[2024-09-10] VITALS: BP 110/62; PULSE 99; RESP 18; TEMP 36.6; O2SAT 99
[2024-09-10 04:00] VITALS: BP 127/79; PULSE 63; RESP 12; TEMP 36.7; O2SAT 98
[2024-09-10 08:00] VITALS: BP 130/62; PULSE 90; RESP 20; TEMP 36.4; O2SAT 96
[2024-09-10 08:13] LABS: BASOPHILS % 0.5 % (0.0-2.0); EOSINOPHILS % 3.0 % (0.0-5.0); HEMATOCRIT. 26.6 % (42.0-52.0); HEMOGLOBIN. 8.8 g/dL (14.0-18.0); LYMPHOCYTES % 10.1 % (20.0-50.0); MEAN PLATELET VOLUME 8.5 fl (7.4-10.4); MONOCYTES % 6.8 % (2.0-8.0); NEUTROPHILS % 79.6 % (40.0-76.0); PLATELET 382 x1000/uL (130-400); RED BLOOD CELL COUNT 2.98 mill/uL (4.7-6.1); RED CELL DISTRIBUTION WIDTH 14.7 % (11.6-14.6)
[2024-09-10 08:42] LABS: CREATININE 2.7 mg/dL (0.6-1.3); UREA NITROGEN BLOOD 68 mg/dL (9-23)
[2024-09-10 08:44] LABS: PHOSPHORUS 4.1 mg/dL (2.5-4.9)
[2024-09-10 12:00] VITALS: BP 72/62; PULSE 93; RESP 20; TEMP 36.7; O2SAT 96
[2024-09-10 16:00] VITALS: BP 133/64; PULSE 96; RESP 22; TEMP 36.2; O2SAT 99
[2024-09-10 20:00] VITALS: BP 120/60; PULSE 94; RESP 22; TEMP 36.8; O2SAT 96
[2024-09-11] VITALS: BP 124/66; PULSE 95; RESP 21; TEMP 37; O2SAT 97
[2024-09-11 04:00] VITALS: BP 113/67; PULSE 93; RESP 16; TEMP 36.8; O2SAT 96
[2024-09-11 08:00] VITALS: BP 123/68; PULSE 97; RESP 22; TEMP 36.3; O2SAT 98
[2024-09-11 08:33] LABS: BASOPHILS % 0.6 % (0.0-2.0); EOSINOPHILS % 2.6 % (0.0-5.0); HEMATOCRIT. 28.9 % (42.0-52.0); HEMOGLOBIN. 9.4 g/dL (14.0-18.0); LYMPHOCYTES % 10.5 % (20.0-50.0); MEAN PLATELET VOLUME 8.2 fl (7.4-10.4); MONOCYTES % 7.4 % (2.0-8.0); NEUTROPHILS % 78.9 % (40.0-76.0); PLATELET 475 x1000/uL (130-400); RED BLOOD CELL COUNT 3.26 mill/uL (4.7-6.1); RED CELL DISTRIBUTION WIDTH 14.4 % (11.6-14.6)
[2024-09-11 08:56] LABS: CREATININE 2.4 mg/dL (0.6-1.3)
[2024-09-11 08:57] LABS: UREA NITROGEN BLOOD 57 mg/dL (9-23)
[2024-09-11 08:59] LABS: PHOSPHORUS 3.4 mg/dL (2.5-4.9)
[2024-09-11] MEDS: FAMOTIDINE 20MG TABLET PO SCH (10:39)
[2024-09-11 12:00] VITALS: BP 129/66; PULSE 95; RESP 26; TEMP 37; O2SAT 97
[2024-09-11 16:00] VITALS: BP 137/69; PULSE 105; RESP 29; TEMP 36.8; O2SAT 97
[2024-09-11 20:00] VITALS: BP 139/68; PULSE 101; RESP 22; TEMP 36.6; O2SAT 94
[2024-09-11] MEDS: LACTULOSE 20G/30ML UDC PO SCH (20:05)
[2024-09-12] VITALS: BP 130/78; PULSE 100; RESP 21; TEMP 37; O2SAT 94
[2024-09-12 04:00] VITALS: BP 127/65; PULSE 103; RESP 21; TEMP 37.3
[2024-09-12 06:02] LABS: CREATININE 2.2 mg/dL (0.6-1.3); UREA NITROGEN BLOOD 47 mg/dL (9-23)
[2024-09-12 06:04] LABS: PHOSPHORUS 3.2 mg/dL (2.5-4.9)
[2024-09-12 08:00] VITALS: BP 159/73; PULSE 104; RESP 26; TEMP 36.4; O2SAT 97
[2024-09-12 08:35] LABS: BASOPHILS % 0.6 % (0.0-2.0); EOSINOPHILS % 2.3 % (0.0-5.0); HEMATOCRIT. 30.1 % (42.0-52.0); HEMOGLOBIN. 10.1 g/dL (14.0-18.0); LYMPHOCYTES % 10.7 % (20.0-50.0); MEAN PLATELET VOLUME 8.0 fl (7.4-10.4); MONOCYTES % 7.3 % (2.0-8.0); NEUTROPHILS % 79.1 % (40.0-76.0); PLATELET 502 x1000/uL (130-400); RED BLOOD CELL COUNT 3.37 mill/uL (4.7-6.1); RED CELL DISTRIBUTION WIDTH 14.7 % (11.6-14.6)
[2024-09-12 12:00] VITALS: BP 123/68; PULSE 105; RESP 26; TEMP 36.6; O2SAT 98
[2024-09-12 16:00] VITALS: BP 127/72; PULSE 101; RESP 24; TEMP 36.9; O2SAT 98
[2024-09-12 20:00] VITALS: BP 107/60; PULSE 95; RESP 22; TEMP 36.4; O2SAT 97
[2024-09-13] VITALS: BP 111/57; PULSE 99; RESP 15; TEMP 36.8; O2SAT 95
[2024-09-13 04:00] VITALS: BP 94/44; PULSE 94; RESP 14; TEMP 36.4; O2SAT 94
[2024-09-13 08:00] VITALS: BP_SYST 119; BP_SYST 128; BP_SYST 151; BP_DIAS 66; BP_DIAS 72; BP_DIAS 75; PULSE 98; RESP 23; TEMP 36.7; O2SAT 100
[2024-09-13 12:00] VITALS: BP 144/72; PULSE 102; RESP 18; TEMP 36.7; O2SAT 98
[2024-09-13 16:00] VITALS: BP 124/60; PULSE 101; RESP 19; TEMP 36.6; O2SAT 98
[2024-09-13 16:10] LABS: BASOPHILS % 0.5 % (0.0-2.0); EOSINOPHILS % 2.2 % (0.0-5.0); HEMATOCRIT. 26.9 % (42.0-52.0); HEMOGLOBIN. 9.0 g/dL (14.0-18.0); LYMPHOCYTES % 9.6 % (20.0-50.0); MEAN PLATELET VOLUME 7.8 fl (7.4-10.4); MONOCYTES % 7.3 % (2.0-8.0); NEUTROPHILS % 80.4 % (40.0-76.0); PLATELET 471 x1000/uL (130-400); RED BLOOD CELL COUNT 3.01 mill/uL (4.7-6.1); RED CELL DISTRIBUTION WIDTH 14.5 % (11.6-14.6)
[2024-09-13 16:32] LABS: CREATININE 1.8 mg/dL (0.6-1.3)
[2024-09-13 16:33] LABS: UREA NITROGEN BLOOD 41 mg/dL (9-23)
[2024-09-13 16:35] LABS: PHOSPHORUS 3.3 mg/dL (2.5-4.9)
[2024-09-13] MEDS: CARVEDILOL 6.25 MG TABLET PO SCH (18:01)
[2024-09-13 20:00] VITALS: BP 136/72; PULSE 98; RESP 15; TEMP 37.4; O2SAT 93
[2024-09-14] VITALS: BP 125/70; PULSE 90; RESP 14; TEMP 37.3; O2SAT 95
[2024-09-14 04:00] VITALS: BP 119/65; PULSE 97; RESP 16; TEMP 37.2; O2SAT 94
[2024-09-14 07:13] LABS: BASOPHILS % 1.0 % (0.0-2.0); EOSINOPHILS % 2.8 % (0.0-5.0); HEMATOCRIT. 29.0 % (42.0-52.0); HEMOGLOBIN. 9.5 g/dL (14.0-18.0); LYMPHOCYTES % 12.3 % (20.0-50.0); MEAN PLATELET VOLUME 7.9 fl (7.4-10.4); MONOCYTES % 7.8 % (2.0-8.0); NEUTROPHILS % 76.1 % (40.0-76.0); PLATELET 456 x1000/uL (130-400); RED BLOOD CELL COUNT 3.28 mill/uL (4.7-6.1); RED CELL DISTRIBUTION WIDTH 14.8 % (11.6-14.6)
[2024-09-14 07:38] LABS: CREATININE 1.7 mg/dL (0.6-1.3)
[2024-09-14 07:39] LABS: UREA NITROGEN BLOOD 32 mg/dL (9-23)
[2024-09-14 07:41] LABS: PHOSPHORUS 2.9 mg/dL (2.5-4.9)
[2024-09-14 08:00] VITALS: BP 124/72; PULSE 104; RESP 29; TEMP 36.7; O2SAT 98
[2024-09-14] MEDS: SODIUM CHLORIDE 0.45% 1,000 ML IV SCH (09:49)
[2024-09-14] MEDS ORDERED: LIDOCAINE HCL 1% 20ML VIAL ONE (09:57)
[2024-09-14] MEDS ORDERED: MIDAZOLAM HCL 2 MG/2 ML VIAL ONE (10:22)
[2024-09-14] MEDS ORDERED: FENTANYL CITRATE/PF 50MCG/ML 2ML VIAL ONE (10:22)
[2024-09-14] MEDS ORDERED: HEPARIN 1000 UNITS/ML 10ML ONE (10:26)
[2024-09-14] MEDS ORDERED: DIPHENHYDRAMINE 50MG/ML VIAL ONE (10:56)
[2024-09-14 12:00] VITALS: BP 152/84; PULSE 95; RESP 23; TEMP 36.3; O2SAT 99
[2024-09-14] MEDS: MAGNESIUM 2 G PREMIX 50 ML IV NR (12:06)
[2024-09-14 16:00] VITALS: BP 142/75; PULSE 95; RESP 17; TEMP 36.6; O2SAT 99
[2024-09-14 20:21] VITALS: BP 123/69; PULSE 94; RESP 21; TEMP 36.5; O2SAT 98
[2024-09-15] VITALS: BP 112/63; PULSE 96; RESP 25; TEMP 36.4; O2SAT 99
[2024-09-15 04:00] VITALS: BP 132/71; PULSE 99; RESP 27; TEMP 36.5; O2SAT 97
[2024-09-15 06:14] LABS: BASOPHILS % 1.0 % (0.0-2.0); EOSINOPHILS % 2.4 % (0.0-5.0); HEMATOCRIT. 28.3 % (42.0-52.0); HEMOGLOBIN. 9.4 g/dL (14.0-18.0); LYMPHOCYTES % 9.3 % (20.0-50.0); MEAN PLATELET VOLUME 7.6 fl (7.4-10.4); MONOCYTES % 5.2 % (2.0-8.0); NEUTROPHILS % 82.1 % (40.0-76.0); PLATELET 456 x1000/uL (130-400); RED BLOOD CELL COUNT 3.14 mill/uL (4.7-6.1); RED CELL DISTRIBUTION WIDTH 14.7 % (11.6-14.6)
[2024-09-15 06:50] LABS: CREATININE 1.7 mg/dL (0.6-1.3); UREA NITROGEN BLOOD 27 mg/dL (9-23)
[2024-09-15 06:52] LABS: PHOSPHORUS 2.7 mg/dL (2.5-4.9)
[2024-09-15 08:00] VITALS: BP 101/51; PULSE 97; RESP 32; TEMP 37.1; O2SAT 98
[2024-09-15 12:00] VITALS: BP_SYST 104; BP_SYST 91; BP_DIAS 50; BP_DIAS 56; PULSE 98; RESP 28; TEMP 36.9; O2SAT 98
[2024-09-15 16:00] VITALS: BP 123/66; PULSE 98; RESP 33; TEMP 37; O2SAT 99
[2024-09-15 19:32] VITALS: BP 120/55; PULSE 94; RESP 22; TEMP 37; O2SAT 98
[2024-09-16] VITALS: BP 110/57; PULSE 95; RESP 26; TEMP 36.9; O2SAT 97
[2024-09-16 04:00] VITALS: BP 120/66; PULSE 97; RESP 22; TEMP 36.8; O2SAT 94
[2024-09-16 07:12] LABS: CREATININE 1.9 mg/dL (0.6-1.3)
[2024-09-16 07:13] LABS: UREA NITROGEN BLOOD 31 mg/dL (9-23)
[2024-09-16 07:15] LABS: PHOSPHORUS 2.7 mg/dL (2.5-4.9)
[2024-09-16 08:00] VITALS: BP 118/62; PULSE 95; RESP 31; TEMP 37.1; O2SAT 95
[2024-09-16 08:17] LABS: BASOPHILS % 0.7 % (0.0-2.0); EOSINOPHILS % 4.1 % (0.0-5.0); HEMATOCRIT. 28.0 % (42.0-52.0); HEMOGLOBIN. 9.1 g/dL (14.0-18.0); LYMPHOCYTES % 10.3 % (20.0-50.0); MEAN PLATELET VOLUME 7.6 fl (7.4-10.4); MONOCYTES % 7.3 % (2.0-8.0); NEUTROPHILS % 77.6 % (40.0-76.0); PLATELET 423 x1000/uL (130-400); RED BLOOD CELL COUNT 3.10 mill/uL (4.7-6.1); RED CELL DISTRIBUTION WIDTH 15.0 % (11.6-14.6)
[2024-09-16 12:00] VITALS: BP 117/62; PULSE 94; RESP 24; TEMP 36.8; O2SAT 97
[2024-09-16 16:00] VITALS: BP 120/68; PULSE 96; RESP 31; TEMP 36.9; O2SAT 96
[2024-09-16 20:00] VITALS: BP 120/53; PULSE 89; RESP 22; TEMP 36.4; O2SAT 95
[2024-09-17] VITALS: BP_SYST 114; BP_SYST 120; BP_DIAS 49; BP_DIAS 54; PULSE 87; PULSE 97; RESP 15; RESP 24; TEMP 36.4; TEMP 36.8; O2SAT 97; O2SAT 98
[2024-09-17 04:00] VITALS: BP 113/86; PULSE 94; RESP 21; TEMP 36.4; O2SAT 96
[2024-09-17 06:43] LABS: BASOPHILS % 0.6 % (0.0-2.0); EOSINOPHILS % 4.4 % (0.0-5.0); HEMATOCRIT. 26.5 % (42.0-52.0); HEMOGLOBIN. 8.7 g/dL (14.0-18.0); LYMPHOCYTES % 13.1 % (20.0-50.0); MEAN PLATELET VOLUME 7.5 fl (7.4-10.4); MONOCYTES % 8.7 % (2.0-8.0); NEUTROPHILS % 73.2 % (40.0-76.0); PLATELET 370 x1000/uL (130-400); RED BLOOD CELL COUNT 3.01 mill/uL (4.7-6.1); RED CELL DISTRIBUTION WIDTH 14.8 % (11.6-14.6)
[2024-09-17 07:07] LABS: CREATININE 1.4 mg/dL (0.6-1.3)
[2024-09-17 07:08] LABS: UREA NITROGEN BLOOD 25 mg/dL (9-23)
[2024-09-17 07:10] LABS: PHOSPHORUS 2.6 mg/dL (2.5-4.9)
[2024-09-17 08:00] VITALS: BP 122/66; PULSE 97; RESP 20; TEMP 36.7; O2SAT 96
[2024-09-17] MEDS: POLYETHYLENE GLYCOL 3350 (17GM) 1 DOSE PACK PO SCH (11:17)
[2024-09-17 12:00] VITALS: BP 138/68; PULSE 90; RESP 20; TEMP 36.9; O2SAT 96
[2024-09-17 16:00] VITALS: BP 135/67; PULSE 96; RESP 20; TEMP 36.7; O2SAT 96
[2024-09-17 20:00] VITALS: BP 109/60; PULSE 93; RESP 22; TEMP 36.7; O2SAT 99
[2024-09-18] VITALS: BP 139/69; PULSE 77; RESP 20; TEMP 36.8; O2SAT 98
[2024-09-18 04:00] VITALS: BP 121/53; PULSE 93; RESP 21; TEMP 36.7; O2SAT 98
[2024-09-18 07:15] LABS: BASOPHILS % 0.5 % (0.0-2.0); EOSINOPHILS % 3.9 % (0.0-5.0); HEMATOCRIT. 27.7 % (42.0-52.0); HEMOGLOBIN. 9.1 g/dL (14.0-18.0); LYMPHOCYTES % 12.6 % (20.0-50.0); MEAN PLATELET VOLUME 7.7 fl (7.4-10.4); MONOCYTES % 8.1 % (2.0-8.0); NEUTROPHILS % 74.9 % (40.0-76.0); PLATELET 360 x1000/uL (130-400); RED BLOOD CELL COUNT 3.14 mill/uL (4.7-6.1); RED CELL DISTRIBUTION WIDTH 14.7 % (11.6-14.6)
[2024-09-18 07:29] LABS: CREATININE 1.3 mg/dL (0.6-1.3); UREA NITROGEN BLOOD 24.0 mg/dL (9-23)
[2024-09-18 08:00] VITALS: BP 139/73; PULSE 97; RESP 25; TEMP 36.7; O2SAT 97
[2024-09-18 12:00] VITALS: BP 118/65; PULSE 91; RESP 21; TEMP 36.7; O2SAT 96
[2024-09-18 16:00] VITALS: BP 149/59; PULSE 99; RESP 19; TEMP 36.7; O2SAT 98
[2024-09-18 20:00] VITALS: BP 112/55; PULSE 91; RESP 26; TEMP 37; O2SAT 98
[2024-09-19] VITALS: BP 112/64; PULSE 68; RESP 17; TEMP 37; O2SAT 99
[2024-09-19 04:00] VITALS: BP 125/60; RESP 20; O2SAT 99
[2024-09-19 08:00] VITALS: BP 125/61; PULSE 92; RESP 18; TEMP 37; O2SAT 97
[2024-09-19 12:00] VITALS: BP 146/75; PULSE 92; RESP 21; TEMP 36.7; O2SAT 98
[2024-09-19 16:00] VITALS: BP 114/58; PULSE 97; RESP 22; TEMP 36.1; O2SAT 99
[2024-09-19 20:00] VITALS: BP 113/57; PULSE 98; RESP 21; TEMP 36.9; O2SAT 100
[2024-09-19] MEDS ORDERED: NALOXONE HCL 0.4MG/ML VIAL IV PRN (23:15)
[2024-09-20] VITALS: BP 111/57; PULSE 100; RESP 19; TEMP 36.6; O2SAT 98
[2024-09-20] MEDS: HYDROCODONE/ACETAMINOPHEN 5/325MG TABLET PO PRN (00:45)
[2024-09-20 04:00] VITALS: BP 121/63; PULSE 102; RESP 18; TEMP 36.9; O2SAT 95
[2024-09-20 08:00] VITALS: BP 126/71; PULSE 100; RESP 24; TEMP 36.8; O2SAT 100
[2024-09-20 12:00] VITALS: BP 104/51; PULSE 91; RESP 22; TEMP 36.7; O2SAT 98
[2024-09-20 16:00] VITALS: BP 111/54; PULSE 94; RESP 23; TEMP 36.6; O2SAT 97
[2024-09-20 20:00] VITALS: BP 113/62; PULSE 91; RESP 24; TEMP 36.9; O2SAT 99
[2024-09-21] VITALS (8 sets, daily range): BP systolic 108–136; BP diastolic 57–76; PULSE 89–102; RESP 16–24; TEMP 36.7–37.2; O2SAT 95–99
[2024-09-21 12:35] LABS: BASOPHILS % 0.8 % (0.0-2.0); EOSINOPHILS % 3.0 % (0.0-5.0); HEMATOCRIT. 26.7 % (42.0-52.0); HEMOGLOBIN. 8.8 g/dL (14.0-18.0); LYMPHOCYTES % 13.8 % (20.0-50.0); MEAN PLATELET VOLUME 7.7 fl (7.4-10.4); MONOCYTES % 7.7 % (2.0-8.0); NEUTROPHILS % 74.7 % (40.0-76.0); PLATELET 319 x1000/uL (130-400); RED BLOOD CELL COUNT 3.00 mill/uL (4.7-6.1); RED CELL DISTRIBUTION WIDTH 15.4 % (11.6-14.6)
[2024-09-21 12:57] LABS: CREATININE 1.4 mg/dL (0.6-1.3); UREA NITROGEN BLOOD 20 mg/dL (9-23)
[2024-09-21 12:59] LABS: PHOSPHORUS 2.7 mg/dL (2.5-4.9)
[2024-09-22] VITALS: BP 118/60; PULSE 91; RESP 18; TEMP 36.9; O2SAT 98
[2024-09-22 04:00] VITALS: BP 136/68; PULSE 93; RESP 18; TEMP 36.4; O2SAT 98
[2024-09-22 08:00] VITALS: BP 111/55; PULSE 90; RESP 19; TEMP 35.6; O2SAT 97
[2024-09-22 11:13] LABS: BASOPHILS % 1.0 % (0.0-2.0); EOSINOPHILS % 3.3 % (0.0-5.0); HEMATOCRIT. 28.0 % (42.0-52.0); HEMOGLOBIN. 9.3 g/dL (14.0-18.0); LYMPHOCYTES % 14.6 % (20.0-50.0); MEAN PLATELET VOLUME 7.8 fl (7.4-10.4); MONOCYTES % 7.0 % (2.0-8.0); NEUTROPHILS % 74.1 % (40.0-76.0); PLATELET 313 x1000/uL (130-400); RED BLOOD CELL COUNT 3.14 mill/uL (4.7-6.1); RED CELL DISTRIBUTION WIDTH 15.1 % (11.6-14.6)
[2024-09-22 11:31] LABS: CREATININE 1.4 mg/dL (0.6-1.3)
[2024-09-22 11:32] LABS: UREA NITROGEN BLOOD 19 mg/dL (9-23)
[2024-09-22 11:34] LABS: PHOSPHORUS 2.7 mg/dL (2.5-4.9)
[2024-09-22 12:00] VITALS: BP 115/58; PULSE 88; RESP 18; TEMP 36.6; O2SAT 97
[2024-09-22 16:00] VITALS: BP 120/60; PULSE 78; RESP 18; TEMP 37.1; O2SAT 100
[2024-09-22 20:00] VITALS: BP 116/55; PULSE 89; RESP 17; TEMP 36.9; O2SAT 98
[2024-09-23] VITALS: BP 107/51; PULSE 90; RESP 16; TEMP 36.7; O2SAT 99
[2024-09-23 06:00] VITALS: BP 136/66; PULSE 77; RESP 15; TEMP 37.4; O2SAT 100
[2024-09-23 08:00] VITALS: BP 117/61; PULSE 18; RESP 18; TEMP 37.5; O2SAT 95
[2024-09-23 12:00] VITALS: BP 109/54; PULSE 18; RESP 18; TEMP 36.6; O2SAT 100
[2024-09-23 16:00] VITALS: BP 133/59; PULSE 60; RESP 18; TEMP 37.3; O2SAT 100
[2024-09-24] VITALS (7 sets, daily range): BP systolic 101–133; BP diastolic 42–78; PULSE 86–96; RESP 17–20; TEMP 35.5–37.5; O2SAT 96–100
[2024-09-25] VITALS: BP 109/53; PULSE 86; RESP 18; TEMP 36.3; O2SAT 98
[2024-09-25 04:00] VITALS: BP 116/57; PULSE 88; RESP 17; TEMP 36.2; O2SAT 98
[2024-09-25 08:00] VITALS: BP 123/54; PULSE 89; RESP 20; TEMP 36.8; O2SAT 97
[2024-09-25 09:58] LABS: BASOPHILS % 0.9 % (0.0-2.0); EOSINOPHILS % 3.8 % (0.0-5.0); HEMATOCRIT. 31.8 % (42.0-52.0); HEMOGLOBIN. 10.3 g/dL (14.0-18.0); LYMPHOCYTES % 18.0 % (20.0-50.0); MEAN PLATELET VOLUME 7.7 fl (7.4-10.4); MONOCYTES % 5.9 % (2.0-8.0); NEUTROPHILS % 71.4 % (40.0-76.0); PLATELET 352 x1000/uL (130-400); RED BLOOD CELL COUNT 3.55 mill/uL (4.7-6.1); RED CELL DISTRIBUTION WIDTH 15.0 % (11.6-14.6)
[2024-09-25 10:22] LABS: CREATININE 1.5 mg/dL (0.6-1.3); UREA NITROGEN BLOOD 20 mg/dL (9-23)
[2024-09-25 10:24] LABS: PHOSPHORUS 2.9 mg/dL (2.5-4.9)
[2024-09-25] MEDS ORDERED: NALOXONE HCL 0.4MG/ML VIAL IV PRN (10:30)
[2024-09-25] MEDS: HYDROCODONE/ACETAMINOPHEN 5/325MG TABLET PO PRN (11:06)
[2024-09-25 12:00] VITALS: BP 104/56; PULSE 87; RESP 20; TEMP 36.4; O2SAT 100
[2024-09-25 16:00] VITALS: BP 126/60; PULSE 95; RESP 19; TEMP 36.7; O2SAT 100
[2024-09-25 20:00] VITALS: BP 116/52; PULSE 88; RESP 20; TEMP 36.7; O2SAT 100
[2024-09-26 04:00] VITALS: BP 121/67; PULSE 92; RESP 19; TEMP 36.7; O2SAT 99
[2024-09-26 12:00] VITALS: BP 117/50; PULSE 88; RESP 16; TEMP 36.6; O2SAT 98
[2024-09-26 14:25] VITALS: PULSE 88; PULSE 92; RESP 16; RESP 17; TEMP 97.9
[2024-09-26 16:00] VITALS: BP 123/52; PULSE 90; RESP 17; TEMP 36.7; O2SAT 98
[2024-09-27] VITALS: BP 113/56; PULSE 89; RESP 16; TEMP 36.2; O2SAT 99
[2024-09-27 04:00] VITALS: BP 124/66; PULSE 89; RESP 16; TEMP 36.3; O2SAT 100
[2024-09-27 12:00] VITALS: BP 144/58; PULSE 76; RESP 20; TEMP 36.6; O2SAT 100
[2024-09-27 16:00] VITALS: BP 146/69; PULSE 93; RESP 20; TEMP 36.9; O2SAT 100
[2024-09-28] VITALS: BP 125/59; PULSE 90; RESP 20; TEMP 36.7; O2SAT 98
[2024-09-28 04:00] VITALS: BP 104/51; PULSE 86; RESP 17; TEMP 36.2; O2SAT 99
[2024-09-28 09:25] LABS: BASOPHILS % 0.8 % (0.0-2.0); EOSINOPHILS % 3.4 % (0.0-5.0); HEMATOCRIT. 29.0 % (42.0-52.0); HEMOGLOBIN. 9.7 g/dL (14.0-18.0); LYMPHOCYTES % 16.0 % (20.0-50.0); MEAN PLATELET VOLUME 7.3 fl (7.4-10.4); MONOCYTES % 6.4 % (2.0-8.0); NEUTROPHILS % 73.4 % (40.0-76.0); PLATELET 317 x1000/uL (130-400); RED BLOOD CELL COUNT 3.27 mill/uL (4.7-6.1); RED CELL DISTRIBUTION WIDTH 15.4 % (11.6-14.6)
[2024-09-28 09:35] LABS: CREATININE 1.3 mg/dL (0.6-1.3)
[2024-09-28 09:36] LABS: UREA NITROGEN BLOOD 21 mg/dL (9-23)
[2024-09-28 09:38] LABS: PHOSPHORUS 2.8 mg/dL (2.5-4.9)
[2024-09-28 16:00] VITALS: BP 134/71; PULSE 90; RESP 18; TEMP 36.4; O2SAT 100
[2024-09-28 17:35] VITALS: BP 134/71; PULSE 90; TEMP 97.5; O2SAT 100
[2024-09-28 17:55] VITALS: BP 134/71; RESP 18
[2024-09-28 17:56] VITALS: PULSE 90
== END 2024-09-28 18:19 | disposition home health service (06) | DRG 233 ==
LOC: ER 08-25 00:03 → CVICU 08-25 03:18 → EDBEDREQSVC 08-25 03:23 → EDBEDREQTM 08-25 03:23 → EDBEDREQ 08-25 03:23 → ENRESERV 08-25 04:32 → EDBEDREQSVC 08-25 04:53 → ENRESERV 08-25 04:56 → 5EST 08-25 15:22 → 3WST 08-26 14:13 → CVICU 08-30 08:07 → 3WST 09-04 18:17 → 7EST 09-21 02:05
PROVIDERS: ADMIT Internal Medicine; ATTEND Internal Medicine
PROC: 4A023N7 Measurement of Cardiac Sampling and Pressure, Left Heart, Percutaneous Approach (ICD-10-PCS; 2024-08-26)
PROC: B211YZZ Fluoroscopy of Multiple Coronary Arteries using Other Contrast (ICD-10-PCS; 2024-08-26)
PROC: 30233N1 Transfusion of Nonautologous Red Blood Cells into Peripheral Vein, Percutaneous Approach (ICD-10-PCS; 2024-08-29)
PROC: 02100Z9 Bypass Coronary Artery, One Artery from Left Internal Mammary, Open Approach (ICD-10-PCS; principal; 2024-08-30)
PROC: 02570ZK Destruction of Left Atrial Appendage, Open Approach (ICD-10-PCS; 2024-08-30)
PROC: 021209W Bypass Coronary Artery, Three Arteries from Aorta with Autologous Venous Tissue, Open Approach (ICD-10-PCS; 2024-08-30)
PROC: 06BQ4ZZ Excision of Left Saphenous Vein, Percutaneous Endoscopic Approach (ICD-10-PCS; 2024-08-30)
PROC: 5A02210 Assistance with Cardiac Output using Balloon Pump, Continuous (ICD-10-PCS; 2024-08-30)
PROC: 02580ZZ Destruction of Conduction Mechanism, Open Approach (ICD-10-PCS; 2024-08-30)
PROC: 4A12XSH Monitoring of Cardiac Vascular Perfusion using Indocyanine Green Dye, External Approach (ICD-10-PCS; 2024-08-30)
PROC: 03HY32Z Insertion of Monitoring Device into Upper Artery, Percutaneous Approach (ICD-10-PCS; 2024-08-30)
PROC: 02L70ZK Occlusion of Left Atrial Appendage, Open Approach (ICD-10-PCS; 2024-08-30)
PROC: 02PY33Z Removal of Infusion Device from Great Vessel, Percutaneous Approach (ICD-10-PCS; 2024-09-02)
PROC: 02HV33Z Insertion of Infusion Device into Superior Vena Cava, Percutaneous Approach (ICD-10-PCS; 2024-09-02)
PROC: B548ZZA Ultrasonography of Superior Vena Cava, Guidance (ICD-10-PCS; 2024-09-02)
PROC: 5A1D70Z Performance of Urinary Filtration, Intermittent, Less than 6 Hours Per Day (ICD-10-PCS; 2024-09-02)
PROC: 05HM33Z Insertion of Infusion Device into Right Internal Jugular Vein, Percutaneous Approach (ICD-10-PCS; 2024-09-03)
PROC: 5A1D70Z Performance of Urinary Filtration, Intermittent, Less than 6 Hours Per Day (ICD-10-PCS; 2024-09-03)
PROC: B543ZZA Ultrasonography of Right Jugular Veins, Guidance (ICD-10-PCS; 2024-09-03)
PROC: 5A1D70Z Performance of Urinary Filtration, Intermittent, Less than 6 Hours Per Day (ICD-10-PCS; 2024-09-05)
PROC: 047K3Z1 Dilation of Right Femoral Artery using Drug-Coated Balloon, Percutaneous Approach (ICD-10-PCS; 2024-09-14)
PROC: 047P3ZZ Dilation of Right Anterior Tibial Artery, Percutaneous Approach (ICD-10-PCS; 2024-09-14)
PROC: 047V3ZZ Dilation of Right Foot Artery, Percutaneous Approach (ICD-10-PCS; 2024-09-14)
PROC: 04CP3ZZ Extirpation of Matter from Right Anterior Tibial Artery, Percutaneous Approach (ICD-10-PCS; 2024-09-14)
PROC: B41F1ZZ Fluoroscopy of Right Lower Extremity Arteries using Low Osmolar Contrast (ICD-10-PCS; 2024-09-14)
DX: I21.4 Non-ST elevation (NSTEMI) myocardial infarction (principal); N17.0 Acute kidney failure with tubular necrosis; E87.0 Hyperosmolality and hypernatremia; I13.0 Hypertensive heart and chronic kidney disease with heart failure and stage 1 through stage 4 chronic kidney disease, or unspecified chronic kidney disease; N18.4 Chronic kidney disease, stage 4 (severe); E11.22 Type 2 diabetes mellitus with diabetic chronic kidney disease; E78.5 Hyperlipidemia, unspecified; I95.1 Orthostatic hypotension; I50.9 Heart failure, unspecified; I65.21 Occlusion and stenosis of right carotid artery; D50.9 Iron deficiency anemia, unspecified; I25.10 Atherosclerotic heart disease of native coronary artery without angina pectoris; I34.0 Nonrheumatic mitral (valve) insufficiency; I70.0 Atherosclerosis of aorta; D69.6 Thrombocytopenia, unspecified; N40.0 Benign prostatic hyperplasia without lower urinary tract symptoms; I25.5 Ischemic cardiomyopathy; I48.0 Paroxysmal atrial fibrillation; I70.221 Atherosclerosis of native arteries of extremities with rest pain, right leg; F03.90 Unspecified dementia, unspecified severity, without behavioral disturbance, psychotic disturbance, mood disturbance, and anxiety; R32 Unspecified urinary incontinence; S80.822A Blister (nonthermal), left lower leg, initial encounter; S80.821A Blister (nonthermal), right lower leg, initial encounter; X58.XXXA Exposure to other specified factors, initial encounter; K59.00 Constipation, unspecified; Y99.8 Other external cause status; Z79.01 Long term (current) use of anticoagulants; Z88.6 Allergy status to analgesic agent; Z79.4 Long term (current) use of insulin; Z79.84 Long term (current) use of oral hypoglycemic drugs; Z79.899 Other long term (current) drug therapy; Z82.49 Family history of ischemic heart disease and other diseases of the circulatory system; Z83.3 Family history of diabetes mellitus; Z86.73 Personal history of transient ischemic attack (TIA), and cerebral infarction without residual deficits; Z87.891 Personal history of nicotine dependence; Y93.89 Activity, other specified; Y92.89 Other specified places as the place of occurrence of the external cause
CPT/HCPCS: 36415; 36556; 36600; 37224; 37229; 37232; 71045; 73502; 73521; 73718; 74176; 75710; 76770; 76937; 77001; 80048; 80053; 80061; 80076; 80320; 81003; 82140; 82270; 82330; 82375; 82550; 82607; 82746; 82805; 82962; 83036; 83540; 83550; 83605; 83735; 83880; 84100; 84145; 84443; 84484; 85014; 85018; 85025; 85027; 85049; 85347; 85384; 86705; 86709; 86850; 86900; 86920; 87340; 90935; 93005; 93306; 93308; 93454; 93880; 93922; 93923; 93970; 94002; 94060; 94070; 94640; 94664; 96365; 97110; 97112; 97116; 97163; 97164; 97166; 97168; 97530; 97535; 97542; 98960; 99291; A4606; C1725; C1729; C1751; C1752; C1758; C1769; C1887; C1893; C1894; C2623; J0282; J0610; J0690; J0885; J1200; J1265; J1308; J1644; J1650; J1815; J1938; J2003; J2250; J2270; J2405; J2543; J2704; J2720; J2765; J3010; J3370; J3475; J3480; J3490; J7040; J7050; J7060; L3908; P9016; P9041; P9047; Q9967; C1713; C1714; G0480; J0131